=== PATIENT | female | born 1995 | race Two or more races ===

== ENCOUNTER 2023-12-24 21:03 | Emergency (ER) | payer OTHER ==
[~2023-12-24] VITALS: Ht 160 cm; Wt 80.0 kg
[2023-12-24 21:31] LABS: Urine WBC None Seen /hpf (0 - 5)
[2023-12-24 21:39] LABS: Urine Bacteria NONE SEEN /hpf (None Seen); Urine Blood Negative /uL (Negative); Urine Clarity Clear (Clear); Urine Color Colorless (Yellow); Urine Protein, UAD Negative (Negative); Urine Specific Gravity 1.002 (1.001-1.035); Urine Urobilinogen Normal (Negative); Urine pH 6.5 (5.0-8.0)
[2023-12-24 23:24] VITALS: BP 128/62; PULSE 68; RESP 18; TEMP 98.2; O2SAT 99
== END 2023-12-24 23:28 | disposition home or self-care (01) ==
LOC: ER 21:03
DX: H53.2 Diplopia (principal); T50.995A Adverse effect of other drugs, medicaments and biological substances, initial encounter; Z88.8 Allergy status to other drugs, medicaments and biological substances; Y92.89 Other specified places as the place of occurrence of the external cause
CPT/HCPCS: 81001; 81025; 82962